=== PATIENT | female | born 1990 | race Caucasian/White ===

== ENCOUNTER 2017-06-15 20:24 | Emergency (ER) | payer BC, MEDICAID ==
[2017-06-15 21:15] LABS: Hematocrit 38 % (35-47); Hemoglobin 12.9 g/dl (12.0-16.0); Mean Corpuscular HGB Conc 34 g/dl (31-36); Mean Corpuscular Hemoglobin 30 pg (27-31); Mean Corpuscular Volume 87 fL (80-97); Mean Platelet Volume 7 um3 (7.4-10.4); Red Blood Count 4.36 10^6/ul (4.0-5.4); Red Cell Distribution Width 12 % (10.5-15); White Blood Count 11.5 10^3/ul (3.5-10.8)
[2017-06-15 21:32] LABS: Urine Bacteria Absent (Absent); Urine Bilirubin Negative (Negative); Urine Glucose Negative (Negative); Urine Nitrite Negative (Negative)
[2017-06-15 21:33] LABS: Albumin 4.1 g/dL (3.2-5.2); BUN/Creatinine Ratio 14.8 (8-20); Calcium 9.3 mg/dL (8.6-10.3); EGFR African American 149.1 (>60); Globulin 2.8 g/dL (2-4); Potassium 3.6 mmol/L (3.5-5.0); Total Bilirubin 0.4 mg/dL (0.2-1.0); Total Protein 6.9 g/dL (6.4-8.9)
[2017-06-15] MEDS ORDERED: RHO D Immune Globulin (HUMAN)* 300 MCG = 1,500 I.U. INJ IM ONE (22:00)
--- NOTE | 2017-06-15 22:33 | ED ---
- HPI Summary HPI Summary: 27F presents at 13 weeks with cramping and vaginal bleeding today. She states everything up to this point in the had been going well. denies any n/v/d/c, hematuria, flank pain, dysuria, frequency, or urgency. no complications with other . bleeding is spotting. is A neg and has had rho gram in past. She states her pain is minimal. She denies any fevers. Her [facility]gyn [facility]. she denies any lightheadedness. - History of Current Complaint Chief Complaint: EDVaginalBleeding Stated Complaint: 13 WKS PREG/SPOTTING Time Seen by Provider: 06/15/17 20:47 Pain Intensity: 0 - Assessment SAB: 0 IEA: 0 - Additional Pertinent History Maternal Blood Type and Rh: A Negative - Allergies/Home Medications Allergies/Adverse Reactions: Allergies Allergy/AdvReac Type Severity Reaction Status Date / Time Latex Allergy Mild Rash Verified 01/06/14 20:22 PMH/Surg Hx/FS Hx/Imm Hx Endocrine/Hematology History: Denies: Hx Diabetes, Hx Systemic Lupus Erythematosus, Hx Thyroid Disease Cardiovascular History: Reports: Hx Hypertension - white coat syndrome Denies: Hx Congestive Heart Failure Respiratory History: Reports: Hx Asthma - As a child Denies: Hx Chronic Obstructive Pulmonary Disease (COPD) GI History: Denies: Hx Ulcer History: Denies: Hx Renal Disease - Surgical History Surgery Procedure, Year, and Place: [place] rep[facility]fr left knee 2004 Infectious Disease History: Yes Infectious Disease History: Denies: Hx Hepatitis, Hx Human Immunodeficiency Virus (HIV), Traveled Outside the [place] in Last 30 Days - Family History Known Family History: Negative: Blood Disorder - Social History Alcohol Use: None Substance Use Type: Reports: None Smoking Status (MU): Former Smoker Review of Systems Negative: Fever Negative: Chest Pain Negative: Shortness Of Breath Positive: Abdominal Pain - cramping, Other - vaginal bleeding. Negative: Vomiting, Diarrhea, Nausea All Other Systems Reviewed And Are Negative: Yes Physical Exam - Physical Exam Triage Information Reviewed: Yes Vital Signs Reviewed: Yes Appearance: Positive: Well-Appearing Skin: Positive: Warm, Dry Head/Face: Positive: Normal Head/Face Inspection Eyes: Positive: Normal, Conjunctiva Clear ENT: Positive: Normal ENT inspection, Pharynx normal, TMs normal Respiratory/Lung Sounds: Positive: Clear to Auscultation, Breath Sounds Present Cardiovascular: Positive: Normal, RRR Abdomen Description: Positive: Soft, Other: - mild pelvic pain Bowel Sounds: Positive: Present Diagnostics - Vital Signs Vital Signs Temp Pulse Resp BP Pulse Ox 06/15/17 21:57 85 16 109/67 99 06/15/17 20:50 98.5 F 100 16 138/78 98 06/15/17 20:27 98.5 F 104 14 144/89 100 - Laboratory Lab Results: Lab Results 06/15/17 06/15/17 06/15/17 Range/Units 21:04 21:04 21:04 WBC 11.5 H (3.5-10.8) 10^3/ul RBC 4.36 (4.0-5.4) 10^6/ul Hgb 12.9 (12.0-16.0) g/dl Hct 38 (35-47) % MCV 87 (80-97) fL MCH 30 (27-31) pg MCHC 34 (31-36) g/dl RDW 12 (10.5-15) % Plt Count 250 (150-450) 10^3/ul MPV 7 L (7.4-10.4) um3 Neut % (Auto) 63.6 (38-83) % Lymph % (Auto) 29.0 (25-47) % Bledsoe % (Auto) 5.3 (1-9) % Eos % (Auto) 1.4 (0-6) % Baso % (Auto) 0.7 (0-2) % Absolute Neuts (auto) 7.3 (1.5-7.7) 10^3/ul Absolute Lymphs (auto) 3.3 (1.0-4.8) 10^3/ul Absolute Monos (auto) 0.6 (0-0.8) 10^3/ul Absolute Eos (auto) 0.2 (0-0.6) 10^3/ul Absolute Basos (auto) 0.1 (0-0.2) 10^3/ul Absolute Nucleated RBC 0.01 10^3/ul Nucleated RBC % 0.1 INR (Anticoag Therapy) (0.89-1.11) APTT (26.0-36.3) seconds Sodium 136 (133-145) mmol/L Potassium 3.6 (3.5-5.0) mmol/L Chloride 107 (101-111) mmol/L Carbon Dioxide 23 (22-32) mmol/L Anion Gap 6 (2-11) mmol/L BUN 9 (6-24) mg/dL Creatinine 0.61 (0.51-0.95) mg/dL Est GFR ( Amer) 149.1 (>60) Est GFR (Non-Af Amer) 116.0 (>60) BUN/Creatinine Ratio 14.8 (8-20) Glucose 107 H (70-100) mg/dL Calcium 9.3 (8.6-10.3) mg/dL Total Bilirubin 0.40 (0.2-1.0) mg/dL AST 14 (13-39) U/L ALT 17 (7-52) U/L Alkaline Phosphatase 41 (34-104) U/L Total Protein 6.9 (6.4-8.9) g/dL Albumin 4.1 (3.2-5.2) g/dL Globulin 2.8 (2-4) g/dL Albumin/Globulin Ratio 1.5 (1-3) Beta HCG, Quant 8249.00 mIU/mL Urine Color Yellow Urine Appearance Cloudy Urine pH 7.0 (5-9) Ur Specific Una 1.010 (1.010-1.030) Urine Protein Negative (Negative) Urine Ketones Negative (Negative) Urine Blood 3+ H (Negative) Urine Nitrate Negative (Negative) Urine Bilirubin Negative (Negative) Urine Urobilinogen Negative (Negative) Ur Leukocyte Esterase Trace H (Negative) Urine WBC (Auto) Trace(0-5/hpf) (Absent) Urine RBC (Auto) Absent (Absent) Ur Squamous Epith Cells Present H (Absent) Amorphous Crystals Present H (Absent) Urine Bacteria Absent (Absent) Urine Glucose Negative (Negative) Blood Type Antibody Screen 06/15/17 06/15/17 Range/Units 21:04 21:04 WBC (3.5-10.8) 10^3/ul RBC (4.0-5.4) 10^6/ul Hgb (12.0-16.0) g/dl Hct (35-47) % MCV (80-97) fL MCH (27-31) pg MCHC (31-36) g/dl RDW (10.5-15) % Plt Count (150-450) 10^3/ul MPV (7.4-10.4) um3 Neut % (Auto) (38-83) % Lymph % (Auto) (25-47) % Bledsoe % (Auto) (1-9) % Eos % (Auto) (0-6) % Baso % (Auto) (0-2) % Absolute Neuts (auto) (1.5-7.7) 10^3/ul Absolute Lymphs (auto) (1.0-4.8) 10^3/ul Absolute Monos (auto) (0-0.8) 10^3/ul Absolute Eos (auto) (0-0.6) 10^3/ul Absolute Basos (auto) (0-0.2) 10^3/ul Absolute Nucleated RBC 10^3/ul Nucleated RBC % INR (Anticoag Therapy) 0.87 L (0.89-1.11) APTT 33.8 (26.0-36.3) seconds Sodium (133-145) mmol/L Potassium (3.5-5.0) mmol/L Chloride (101-111) mmol/L Carbon Dioxide (22-32) mmol/L Anion Gap (2-11) mmol/L BUN (6-24) mg/dL Creatinine (0.51-0.95) mg/dL Est GFR ( Amer) (>60) Est GFR (Non-Af Amer) (>60) BUN/Creatinine Ratio (8-20) Glucose (70-100) mg/dL Calcium (8.6-10.3) mg/dL Total Bilirubin (0.2-1.0) mg/dL AST (13-39) U/L ALT (7-52) U/L Alkaline Phosphatase (34-104) U/L Total Protein (6.4-8.9) g/dL Albumin (3.2-5.2) g/dL Globulin (2-4) g/dL Albumin/Globulin Ratio (1-3) Beta HCG, Quant mIU/mL Urine Color Urine Appearance Urine pH (5-9) Ur Specific Una (1.010-1.030) Urine Protein (Negative) Urine Ketones (Negative) Urine Blood (Negative) Urine Nitrate (Negative) Urine Bilirubin (Negative) Urine Urobilinogen (Negative) Ur Leukocyte Esterase (Negative) Urine WBC (Auto) (Absent) Urine RBC (Auto) (Absent) Ur Squamous Epith Cells (Absent) Amorphous Crystals (Absent) Urine Bacteria (Absent) Urine Glucose (Negative) Blood Type A Negative Antibody Screen Pending Result Diagrams: 06/15/17 21:04 06/15/17 21:04 Lab Statement: Any lab studies that have been ordered have been reviewed, and results considered in the medical decision making process. - Ultrasound No standard instances Ultrasound Interpretation: Positive (See Comments) - single intrauterine measuring gestational age 10 weeks 0 days without visible heart rate consistnet with demise. normal ovaries. Ultrasound Interpretation Completed By: Radiologist Course/Dx - Course Course Of Treatment: 27F presents at 13 weeks with cramping and vaginal bleeding today. She states everything up to this point in the had been going well. denies any n/v/d/c, hematuria, flank pain, dysuria, frequency, or urgency. no complications with other . bleeding is spotting. is A neg and has had rho gram in past. She states her pain is minimal. She denies any fevers. on exam tender in pelvic region. gave rho gram. HCG lower than expected and u/s shows demise. explained all results to patient and that needs to follow up with obgyn to discuss options. patient understands and agrees with plan. - Differential Diagnosis/HQI/PQRI: Missed , Spontaneous , / Embryonic Demise - Diagnoses Provider Diagnoses: demise, Vaginal bleeding Discharge - Discharge Plan Condition: Good Disposition: HOME Patient Education Materials: Miscarriage (ED) Referrals: Oscar Brown MD [Primary Care Provider] - Britni Moore MD [Medical Doctor] - Additional Instructions: Follow up with obgyn Take Tylenol or ibuprofen for pain every 6 hours Return to ED if develop any fever or any new or worsening symptoms
[2017-06-15 23:15] VITALS: BP 123/71
--- NOTE | 2017-06-16 08:26 | RAD ---
HISTORY: Cramping and vaginal bleeding in a woman in her first trimester COMPARISONS: None TECHNIQUE: Multiple transverse and longitudinal ultrasound images were obtained of the pelvis using grayscale, color flow, spectral and M-mode sonographic imaging. FINDINGS: UTERUS: The uterus is normal in shape, size, contour, and echotexture. GESTATION: There is a single live intrauterine gestation. The crown-rump length measures 2.3 cm yielding a gestational age of 9 weeks and 0 days. The mean gestational sac diameter of the irregular gestational sac measures 5.1 centimeters yielding a gestational age of 11 weeks and 0 days. No movement or heart rate is detected. CUL-DE-SAC: There is no free fluid within the cul-de-sac. RIGHT OVARY: The right ovary measures 2.8 x 2.4 x 1.4 cm. LEFT OVARY: The left ovary measures 3.4 x 1.7 x 2.9 cm. IMPRESSION: There is a 2 week discrepancy between the pole and the gestational sac mean diameter and no movement or cardiac activity identified. Sonographic findings are most consistent with demise. Close maternal and possibly sonographic follow-up is advised including trending beta hCG.
== END 2017-06-15 23:15 | disposition home or self-care (01) ==
LOC: ED 20:24
DX: O02.1 Missed abortion (principal); R10.30 Lower abdominal pain, unspecified; I10 Essential (primary) hypertension; Z91.040 Latex allergy status; Z87.891 Personal history of nicotine dependence
CPT/HCPCS: 36415; 76801; 80053; 81003; 81015; 84702; 85025; 85610; 85730; 86850; 86900; 86901; 87086; 96372; 99282; J2790

== ENCOUNTER 2017-12-31 19:41 | Emergency (ER) | payer MEDICAID, OTHER ==
[2017-12-31 20:49] LABS: Urine Appearance Clear; Urine Blood 1+ (Negative); Urine Color Straw; Urine Ketones Negative (Negative); Urine Protein Negative (Negative); Urine Specific Gravity 1.008 (1.010-1.030); Urine Urobilinogen Negative (Negative)
[2017-12-31 21:42] LABS: ABS Basophils 0.1 10^3/ul (0-0.2); ABS Eosinophils 0.1 10^3/ul (0-0.6); ABS Lymphocytes 3.8 10^3/ul (1.0-4.8); ABS Monocytes 0.6 10^3/ul (0-0.8); ABS Neutrophils 7.7 10^3/ul (1.5-7.7); ABS Nucleated RBC 0 10^3/ul; Eosinophil % 0.9 % (0-6); Hematocrit 40 % (35-47); Hemoglobin 13.7 g/dl (12.0-16.0); Mean Corpuscular HGB Conc 34 g/dl (31-36); Mean Corpuscular Hemoglobin 29 pg (27-31); Mean Corpuscular Volume 85 fL (80-97); Mean Platelet Volume 8 um3 (7.4-10.4); Nucleated Red Blood Cells % 0; Platelet Count 250 10^3/ul (150-450); Red Blood Count 4.72 10^6/ul (4.0-5.4); Red Cell Distribution Width 12 % (10.5-15); White Blood Count 12.3 10^3/ul (3.5-10.8)
[2017-12-31 21:58] LABS: EGFR Non-African American 88.6 (>60)
[2018-01-01] MEDS ORDERED: RHO D Immune Globulin (HUMAN)* 300 MCG = 1,500 I.U. INJ IM ONE (01:00)
--- NOTE | 2018-01-01 01:04 | ED ---
- HPI Summary HPI Summary: 27 female presents to ED with complaints of vaginal spotting and passing 1-2 clots that began this evening around dinner time, 12/31/17. Patient has had one miscarriage in the past. . Patient denies any cramping or abdominal pain. Denies vaginal discharge otherwise. No itching burning or other complaints. No concern for STD. Otherwise healthy. No other complaints. Just wanted to check . Bleding has since subsided. Patient did not even wear a pad. - History of Current Complaint Chief Complaint: EDOBProblems Stated Complaint: 6 WEEKS PREG/CRAMPING/SPOTTING Time Seen by Provider: 01/01/18 00:05 Hx Obtained From: Patient Onset/Duration: Started Hours Ago, Resolved Timing: Constant Severity: Mild Current Severity: None Pain Intensity: 1 Location of Pain: None Character: None Associated Signs and Symptoms: Positive: Vaginal Bleeding or Discharge - Assessment SAB: 0 IEA: 0 - Additional Pertinent History Maternal Blood Type and Rh: A Negative - Allergies/Home Medications Allergies/Adverse Reactions: Allergies Allergy/AdvReac Type Severity Reaction Status Date / Time MS Latex [Latex] Allergy Mild Rash Verified 01/06/14 20:22 PMH/Surg Hx/FS Hx/Imm Hx Endocrine/Hematology History: Denies: Hx Diabetes, Hx Systemic Lupus Erythematosus, Hx Thyroid Disease Cardiovascular History: Reports: Hx Hypertension - white coat syndrome Denies: Hx Congestive Heart Failure Respiratory History: Reports: Hx Asthma - As a child Denies: Hx Chronic Obstructive Pulmonary Disease (COPD) GI History: Denies: Hx Ulcer History: Denies: Hx Renal Disease - Surgical History Surgery Procedure, Year, and Place: [place] rep[facility]fr left knee 2003 - Immunization History Immunizations Up to Date: Yes Infectious Disease History: Yes Infectious Disease History: Denies: Hx Hepatitis, Hx Human Immunodeficiency Virus (HIV), Traveled Outside the [place] in Last 30 Days - Family History Known Family History: Positive: None Negative: Blood Disorder - Social History Alcohol Use: None Substance Use Type: Reports: None Smoking Status (MU): Former Smoker Review of Systems Constitutional: Negative Cardiovascular: Negative Respiratory: Negative Positive: other - vaginal spotting All Other Systems Reviewed And Are Negative: Yes Physical Exam - Physical Exam Triage Information Reviewed: Yes Vital Signs On Initial Exam: temp: 99.4 HR: 93 O2: 99 BP: 144/83 Resp: 20 Vital Signs Reviewed: Yes Appearance: Positive: Well-Appearing, No Pain Distress Skin: Positive: Warm, Skin Color Reflects Adequate Perfusion, Dry Respiratory/Lung Sounds: Positive: Clear to Auscultation, Breath Sounds Present , Wheezes - diffuse "patient suffering from URI". Negative: Rales, Rhonchi Cardiovascular: Positive: Normal, RRR, Pulses are Symmetrical in both Upper and Lower Extremities Abdomen Description: Positive: Nontender, No Organomegaly, Soft, Other: - pelvic exam deferred Bowel Sounds: Positive: Present Musculoskeletal: Positive: Normal, Strength/ROM Intact Neurological: Positive: Normal, Sensory/Motor Intact, Alert, Oriented to Person Place, Time Diagnostics - Vital Signs Vital Signs Temp Pulse Resp BP Pulse Ox 12/31/17 20:05 99.4 F 93 20 144/83 99 - Laboratory Lab Results: Lab Results 12/31/17 12/31/17 12/31/17 Range/Units 20:14 21:30 21:30 WBC 12.3 H (3.5-10.8) 10^3/ul RBC 4.72 (4.0-5.4) 10^6/ul Hgb 13.7 (12.0-16.0) g/dl Hct 40 (35-47) % MCV 85 (80-97) fL MCH 29 (27-31) pg MCHC 34 (31-36) g/dl RDW 12 (10.5-15) % Plt Count 250 (150-450) 10^3/ul MPV 8 (7.4-10.4) um3 Neut % (Auto) 62.6 (38-83) % Lymph % (Auto) 31.0 (25-47) % [place] % (Auto) 4.9 (1-9) % Eos % (Auto) 0.9 (0-6) % Baso % (Auto) 0.6 (0-2) % Absolute Neuts (auto) 7.7 (1.5-7.7) 10^3/ul Absolute Lymphs (auto) 3.8 (1.0-4.8) 10^3/ul Absolute Monos (auto) 0.6 (0-0.8) 10^3/ul Absolute Eos (auto) 0.1 (0-0.6) 10^3/ul Absolute Basos (auto) 0.1 (0-0.2) 10^3/ul Absolute Nucleated RBC 0 10^3/ul Nucleated RBC % 0 Sodium 135 (133-145) mmol/L Potassium 3.5 (3.5-5.0) mmol/L Chloride 106 (101-111) mmol/L Carbon Dioxide 24 (22-32) mmol/L Anion Gap 5 (2-11) mmol/L BUN 11 (6-24) mg/dL Creatinine 0.77 (0.51-0.95) mg/dL Est GFR ( Amer) 114.0 (>60) Est GFR (Non-Af Amer) 88.6 (>60) BUN/Creatinine Ratio 14.3 (8-20) Glucose 89 (70-100) mg/dL Calcium 8.8 (8.6-10.3) mg/dL Total Bilirubin 0.40 (0.2-1.0) mg/dL AST 16 (13-39) U/L ALT 24 (7-52) U/L Alkaline Phosphatase 37 (34-104) U/L Total Protein 6.9 (6.4-8.9) g/dL Albumin 4.4 (3.2-5.2) g/dL Globulin 2.5 (2-4) g/dL Albumin/Globulin Ratio 1.8 (1-3) Beta HCG, Quant 55175.00 mIU/mL Urine Color Straw Urine Appearance Clear Urine pH 8.0 (5-9) Ur Specific [place] 1.008 L (1.010-1.030) Urine Protein Negative (Negative) Urine Ketones Negative (Negative) Urine Blood 1+ H (Negative) Urine Nitrate Negative (Negative) Urine Bilirubin Negative (Negative) Urine Urobilinogen Negative (Negative) Ur Leukocyte Esterase Negative (Negative) Urine WBC (Auto) Absent (Absent) Urine RBC (Auto) Trace(0-2/hpf) (Absent) Ur Squamous Epith Cells Present H (Absent) Urine Bacteria Absent (Absent) Urine Glucose Negative (Negative) Blood Type Antibody Screen 12/31/17 Range/Units 21:30 WBC (3.5-10.8) 10^3/ul RBC (4.0-5.4) 10^6/ul Hgb (12.0-16.0) g/dl Hct (35-47) % MCV (80-97) fL MCH (27-31) pg MCHC (31-36) g/dl RDW (10.5-15) % Plt Count (150-450) 10^3/ul MPV (7.4-10.4) um3 Neut % (Auto) (38-83) % Lymph % (Auto) (25-47) % [place]ador % (Auto) (1-9) % Eos % (Auto) (0-6) % Baso % (Auto) (0-2) % Absolute Neuts (auto) (1.5-7.7) 10^3/ul Absolute Lymphs (auto) (1.0-4.8) 10^3/ul Absolute Monos (auto) (0-0.8) 10^3/ul Absolute Eos (auto) (0-0.6) 10^3/ul Absolute Basos (auto) (0-0.2) 10^3/ul Absolute Nucleated RBC 10^3/ul Nucleated RBC % Sodium (133-145) mmol/L Potassium (3.5-5.0) mmol/L Chloride (101-111) mmol/L Carbon Dioxide (22-32) mmol/L Anion Gap (2-11) mmol/L BUN (6-24) mg/dL Creatinine (0.51-0.95) mg/dL Est GFR ( Amer) (>60) Est GFR (Non-Af Amer) (>60) BUN/Creatinine Ratio (8-20) Glucose (70-100) mg/dL Calcium (8.6-10.3) mg/dL Total Bilirubin (0.2-1.0) mg/dL AST (13-39) U/L ALT (7-52) U/L Alkaline Phosphatase (34-104) U/L Total Protein (6.4-8.9) g/dL Albumin (3.2-5.2) g/dL Globulin (2-4) g/dL Albumin/Globulin Ratio (1-3) Beta HCG, Quant mIU/mL Urine Color Urine Appearance Urine pH (5-9) Ur Specific [place] (1.010-1.030) Urine Protein (Negative) Urine Ketones (Negative) Urine Blood (Negative) Urine Nitrate (Negative) Urine Bilirubin (Negative) Urine Urobilinogen (Negative) Ur Leukocyte Esterase (Negative) Urine WBC (Auto) (Absent) Urine RBC (Auto) (Absent) Ur Squamous Epith Cells (Absent) Urine Bacteria (Absent) Urine Glucose (Negative) Blood Type A Negative Antibody Screen Negative Result Diagrams: 12/31/17 21:30 12/31/17 21:30 Lab Statement: Any lab studies that have been ordered have been reviewed, and results considered in the medical decision making process. - Ultrasound No standard instances Ultrasound Interpretation: Positive (See Comments) - small intrauterine possible gestational sac 6 weeks 0 days by measurement without discrete yok sac or pole. no adnexal masses appreciated. findings could represent early gestation, but advise correlation with serial quantitative beta-hCG and follow up ultrasound as clinically indicated to exclude possibility of nonvisualized ectopic . no ovarian torsion. color flow with appropriate arterial waveforms. corpora lutea/follicles in each ovary 1.8cm on right 1.4 cm on left Ultrasound Interpretation Completed By: Radiologist Course/Dx - Course Course Of Treatment: US obtained. labs, HCG and type/screen obtained. given rhogam due to patient being negative and experienced spotting/passing of a clot. appears to be an early 6wk intrauterine . follow up with obgyn this week. aware of worsening signs and symptoms to watch out for and to return. no other concerns at this time. no current pain or concerning symptoms. - Differential Diagnosis/HQI/PQRI: Intrauterine , Early , Vaginal Bleeding - Diagnoses Provider Diagnoses: Intrauterine , Early stage of , Vaginal bleeding in patient at less than 20 weeks gestation Discharge - Discharge Plan Condition: Stable Disposition: HOME Patient Education Materials: Threatened Miscarriage (ED), (ED), First Trimester Vaginal Bleed (ED) Referrals: Oscar Brown MD [Primary Care Provider] - Trino Huntley MD [Medical Doctor] - Additional Instructions: Please follow up with OB this week to ensure symptoms improve and for repeat imaging/labs. Any new or worsening symptoms please seek medical attention promptly. Take precautions.
[2018-01-01 02:30] VITALS: BP 118/62
--- NOTE | 2018-01-01 07:46 | RAD ---
INDICATION: , vaginal bleeding. COMPARISON: There are no prior studies available for comparison. TECHNIQUE: Multiple real-time transvaginal images of the pelvis were obtained. FINDINGS: This exam demonstrates a sac like structure within the uterine cavity. No yolk sac pole or heartbeat is seen. The sac measures 1.2 x 1.4 x 0.6 cm and would correspond to an estimated gestational age of 6 weeks 0 days. The right ovary measured 3.4 x 2.6 x 2.5 cm. The left ovary measured 2.9 x 1.6 x 2.2 cm. There is vascular flow within both ovaries. There is a slightly complex cyst present within the right ovary measured 1.8 x 1.8 x 1.8 cm. There is a small cyst within the left ovary measured 1.4 x 1.2 x 1.2 cm. No free intraperitoneal fluid is seen. IMPRESSION: THERE IS A SAC LIKE STRUCTURE WITHIN THE FUNDAL PORTION OF THE UTERUS LIKELY REPRESENTING AN EARLY UTERINE ALTHOUGH A POLE, YOLK SAC OR HEARTBEAT ARE NOT VISUALIZED. THEREFORE THE POSSIBILITY OF AN ECTOPIC CANNOT BE EXCLUDED. RECOMMEND CORRELATION WITH QUANTITATIVE BETA-HCG AND FOLLOW-UP TRANSVAGINAL PELVIC ULTRASOUND STUDIES NEEDED.
== END 2018-01-01 02:29 | disposition home or self-care (01) ==
LOC: ED 19:41
DX: O46.92 Antepartum hemorrhage, unspecified, second trimester (principal); Z3A.20 20 weeks gestation of pregnancy
CPT/HCPCS: 36415; 76801; 76830; 80053; 81003; 81015; 84702; 85025; 86850; 86900; 86901; 96372; 99282; J2790

== ENCOUNTER 2018-04-22 07:13 | Emergency (ER) | payer OTHER ==
--- NOTE | 2018-04-22 08:17 | UC ---
Complaint Female HPI - HPI Summary HPI Summary: 27-year-old lady comes in today with chief complaint of pelvic pain. She feels that she has urgency and frequency with urination. Chest has sharp stabbing pains that go from her vagina up into her uterus. She had a miscarriage about 2 months ago and has not had follow-up ultrasound she has not had any bleeding. She's been sexually active without condoms reports no vaginal discharge no fevers chills or back pain - History Of Current Complaint Chief Complaint: UCGU Stated Complaint: UTI Time Seen by Provider: 04/22/18 07:26 Hx Obtained From: Patient Hx Last Menstrual Period: approx- miscarriage end of 02/03. No menes since ?: No Onset/Duration: Sudden Onset, Lasting Days - 1 Timing: Constant Pain Intensity: 4 Pain Scale Used: 0-10 Numeric Character: Cramping Aggravating Factor(s): Urination Alleviating Factor(s): Nothing Associated Signs And Symptoms: Positive: Negative Related Hx: - 3, Para - 1 - Allergies/Home Medications Allergies/Adverse Reactions: Allergies Allergy/AdvReac Type Severity Reaction Status Date / Time latex Allergy Shakes Verified 04/22/18 07:33 Latex, Natural Rubber Allergy Rash Verified 04/22/18 07:33 PMH/Surg Hx/FS Hx/Imm Hx Previously Healthy: Yes - Surgical History Surgical History: Yes Surgery Procedure, Year, and Place: [place] repafr left knee 2003 - Family History Known Family History: Positive: None Negative: Blood Disorder - Social History Occupation: Works From/At Home Lives: With Family Alcohol Use: None Substance Use Type: None Smoking Status (MU): Former Smoker - Immunization History Most Recent Influenza Vaccination: 09/19/13 Most Recent Tetanus Shot: 10/22/13 Most Recent Pneumonia Vaccination: none Review of Systems Constitutional: Negative Skin: Negative Eyes: Negative ENT: Negative Respiratory: Negative Cardiovascular: Negative Gastrointestinal: Negative Genitourinary: Negative, Frequency, Urgency, Vaginal/Penile Pain Motor: Negative Neurovascular: Negative Musculoskeletal: Negative Neurological: Negative Psychological: Negative Is Patient Immunocompromised?: No All Other Systems Reviewed And Are Negative: Yes Physical Exam Triage Information Reviewed: Yes Appearance: Well-Appearing, No Pain Distress, Well-Nourished Vital Signs: Initial Vital Signs Temp 98.2 F 04/22/18 07:34 Pulse 67 04/22/18 07:34 Resp 18 04/22/18 07:34 BP 146/62 04/22/18 07:34 Pulse Ox 100 04/22/18 07:34 Vital Signs Reviewed: Yes Eye Exam: Normal Eyes: Positive: Conjunctiva Clear ENT Exam: Normal ENT: Positive: Normal ENT inspection, Hearing grossly normal. Negative: Nasal congestion, Trismus, Muffled voice, Hoarse voice Dental Exam: Normal Neck exam: Normal Neck: Positive: Supple, Nontender Respiratory Exam: Normal Respiratory: Positive: Chest non-tender, No respiratory distress, No accessory muscle use Cardiovascular Exam: Normal Cardiovascular: Positive: RRR, No Murmur, Brisk Capillary Refill Abdominal Exam: Normal Abdomen Description: Positive: Soft, Other: - supra pubic discomfort. Negative : CVA Tenderness (R), CVA Tenderness (L), Distended, McBurney's Point Tenderness Bowel Sounds: Positive: Present Musculoskeletal Exam: Normal Musculoskeletal: Positive: Strength Intact, ROM Intact, No Edema Neurological Exam: Normal Neurological: Positive: Alert, Muscle Tone Normal Psychological Exam: Normal Skin Exam: Normal Diagnostics - Laboratory Diagnostic Studies Completed/Ordered: ua trace blood negative urine preg - Radiology No standard instances Xray Interpretation: Positive (See Comments) - Patient Name: VELASQUEZ STAFFORD Medical Record#: [id number] Ordering Physician: Eunice Boyce NP Acct.#: [id number] : 1990 Age: 27 Sex: F Location: [facility] Exam Date: 04/22/18830 ADM Status: REG ER Order Information : US TRANSVAGINAL Accession Number : [id number] CPT: 12804 INDICATION: Left greater than right pelvic pain in a woman who had a miscarriage 2 months earlier as yet to have a menstrual period COMPARISON: Gravid pelvic ultrasound dated December 31, 2017 TECHNIQUE: Real-time transabdominal and transvaginal ultrasound examination of the female pelvis including grayscale and Doppler color flow imaging. FINDINGS: Uterus: The uterus is normal in size and echogenicity measuring 7.2 x 4.4 x 6.4 cm. The endometrial stripe is smooth and uniform measuring 8 mm in thickness. There are no definite retained products of conception. Ovaries: The right and left ovary measure 3.8 x 3.2 x 2.9 cm and 3.9 x 1.8 x 1.9 cm, respectively. Normal arterial and venous waveforms are identified. Within the right ovary there is an anechoic and avascular structure measuring 2.6 cm in greatest dimension most consistent with a follicle in a woman of this age. There is no free fluid in the cul-de-sac. IMPRESSION: Normal and age-appropriate pelvic ultrasound. No signs of retained products of conception are identified. <Electronically signed by Troy Gallardo MD in OV> 04/22/18918 Dictated By: Troy Gallardo MD Dictated Date/Time: 04/22/18918 Transcribed Date/ Time: 04/22/18915 Copy to: CC:Oscar Brown MD; Otis Grant MD; Eunice Boyce NP Imaging - [facility] - [facility] [address] [place] [address] ph ) ph ([phone]) ph ([phone]) 1 of 1 Radiology Interpretation Completed By: Radiologist Complaint Female Dx - Course Course Of Treatment: ibuprofen, pelvic swabs to lab, [facility] - Differential Dx/Diagnosis Provider Diagnoses: ovarian cyst, pelvic pain Discharge - Sign-Out/Discharge Documenting (check all that apply): Discharge/Admit/Transfer - Discharge Plan Condition: Stable Disposition: HOME Prescriptions: Ibuprofen TAB* [Motrin TAB* 600 MG] 600 mg PO Q6H PRN #30 tab PRN Reason: pain Patient Education Materials: Ovarian Cyst (ED), Pelvic Pain in Women (ED) [facility]errals: [facility] [Outside] - 1 Week - Billing Disposition and Condition Condition: STABLE Disposition: Home
--- NOTE | 2018-04-22 09:23 | RAD ---
INDICATION: Left greater than right pelvic pain in a woman who had a miscarriage 2 months earlier as yet to have a menstrual period COMPARISON: Gravid pelvic ultrasound dated December 31, 2017 TECHNIQUE: Real-time transabdominal and transvaginal ultrasound examination of the female pelvis including grayscale and Doppler color flow imaging. FINDINGS: Uterus: The uterus is normal in size and echogenicity measuring 7.2 x 4.4 x 6.4 cm. The endometrial stripe is smooth and uniform measuring 8 mm in thickness. There are no definite retained products of conception. Ovaries: The right and left ovary measure 3.8 x 3.2 x 2.9 cm and 3.9 x 1.8 x 1.9 cm, respectively. Normal arterial and venous waveforms are identified. Within the right ovary there is an anechoic and avascular structure measuring 2.6 cm in greatest dimension most consistent with a follicle in a woman of this age. There is no free fluid in the cul-de-sac. IMPRESSION: Normal and age-appropriate pelvic ultrasound. No signs of retained products of conception are identified.
[2018-04-22 09:29] VITALS: BP 146/77
--- NOTE | 2018-04-24 08:17 | UC ---
- Progress Note Progress Note: neg Trich neg GC/ch no change ljj 04/24/18 Discharge - Sign-Out/Discharge Documenting (check all that apply): Post-Discharge Follow Up - Discharge Plan Condition: Stable Disposition: HOME Prescriptions: Ibuprofen TAB* [Motrin TAB* 600 MG] 600 mg PO Q6H PRN #30 tab PRN Reason: pain Patient Education Materials: Ovarian Cyst (ED), Pelvic Pain in Women (ED) Referrals: [facility] [Outside] - 1 Week - Billing Disposition and Condition Condition: STABLE Disposition: Home
== END 2018-04-22 09:46 | disposition home or self-care (01) ==
LOC: UCEAST 07:13
DX: N83.209 Unspecified ovarian cyst, unspecified side (principal); R10.2 Pelvic and perineal pain; Z87.891 Personal history of nicotine dependence
CPT/HCPCS: 76830; 81003; 84702; 87480; 87491; 87510; 87591; 87661; 99212; G0463

== ENCOUNTER 2018-05-05 06:35 | Emergency (ER) | payer OTHER ==
[2018-05-05] MEDS ORDERED: Ketorolac INJ* 30 MG/ML 1 ML VIAL IV PUSH ONE (07:24)
[2018-05-05] MEDS ORDERED: PROCHLORPERAZINE INJ 5 MG/ML 2 ML VIAL IV PRN (07:24)
[2018-05-05] MEDS ORDERED: NS 0.9% 1000 ML* 1,000 ML IV ONE (07:24)
[2018-05-05 07:55] LABS: ABS Basophils 0 10^3/ul (0-0.2); ABS Eosinophils 0 10^3/ul (0-0.6); ABS Lymphocytes 1.4 10^3/ul (1.0-4.8); ABS Monocytes 0.2 10^3/ul (0-0.8); ABS Neutrophils 6.2 10^3/ul (1.5-7.7); ABS Nucleated RBC 0 10^3/ul; Eosinophil % 0.3 % (0-6); Hematocrit 43 % (35-47); Hemoglobin 14.9 g/dl (12.0-16.0); Lymphocyte % 18.1 % (25-47); Mean Corpuscular HGB Conc 35 g/dl (31-36); Mean Corpuscular Hemoglobin 28 pg (27-31); Mean Corpuscular Volume 81 fL (80-97); Mean Platelet Volume 7.9 um3 (7.4-10.4); Nucleated Red Blood Cells % 0.1; Platelet Count 227 10^3/ul (150-450); Red Blood Count 5.24 10^6/ul (4.00-5.40); Red Cell Distribution Width 13 % (10.5-15)
[2018-05-05 08:34] LABS: Urine Appearance Cloudy; Urine Blood 3+ (Negative); Urine Color Yellow; Urine Ketones Negative (Negative); Urine Protein 1+(30 mg/dL) (Negative); Urine Red Blood Cell 3+(>10/hpf) (Absent); Urine Specific Gravity 1.021 (1.010-1.030); Urine Urobilinogen Negative (Negative); Urine White Blood Cell Absent (Absent)
--- NOTE | 2018-05-05 09:40 | RAD ---
CLINICAL HISTORY: right flank pain , COMPARISON: April 16, 2013 TECHNIQUE: Multiple contiguous axial CT scans were obtained of the abdomen and pelvis, without intravenous contrast enhancement. Coronal and sagittal multiplanar reformations are submitted for review. Oral contrast was not administered. FINDINGS: The study is limited by the lack of intravenous contrast. This limits evaluation of the solid organs and vasculature. Evaluation is also somewhat limited by the [id number]. The dome of the liver is incompletely included within the [id number] the current examination. LUNG BASES: The lung bases are clear. LIVER: The liver is normal in shape, size, contour, and attenuation. BILE DUCTS: There is no intrahepatic or extrahepatic biliary dilatation. GALLBLADDER: The gallbladder is normal, without pericholecystic inflammatory change. PANCREAS: The pancreas is normal, without mass or ductal dilatation. SPLEEN: Normal in size and appearance. UPPER GI TRACT: Evaluation of the gastrointestinal tract is limited by incomplete gastric distention. The upper GI tract is unremarkable. SMALL BOWEL AND MESENTERY: The small bowel is normal in contour, course, and caliber. There is no obstruction or dilatation. COLON: The colon is normal in contour, course, caliber. There is no pericolonic inflammatory change. ADRENALS: Normal bilaterally. KIDNEYS: There is a 0.5 cm calculus of the distal right ureter just proximal to the UVJ. There is moderate hydroureter. There is a nonobstructing left renal calyceal stone measuring 0.4 cm. BLADDER: The bladder is incompletely distended but is grossly normal. PELVIC ORGANS: The uterus and adnexa are grossly normal for technique. AORTA: The aorta is normal. IVC: Unremarkable LYMPH NODES: There is no lymphadenopathy by size criteria. ABDOMINAL WALL: There is a small fat-containing umbilical hernia. BONES AND SOFT TISSUES: Unremarkable OTHER: None IMPRESSION: BILATERAL NEPHROLITHIASIS INCLUDING A 0.5 CM CALCULUS OF THE DISTAL RIGHT URETER JUST PROXIMAL TO THE UVJ WITH ASSOCIATED HYDROURETER.
[2018-05-05 10:37] VITALS: BP 126/78
--- NOTE | 2018-05-05 12:09 | ED ---
Arslan Escobar Tariq, scribed for Jesse Galeas MD on 05/05/18 at 0713 . Abdominal Pain/Female - HPI Summary HPI Summary: A 27 y/o pt presents to the ED c/o RUQ abdominal pain. Severe pain started at 0330, waking her up from her sleep, and has been constant ever since. The pain is characterized as sharp, 8/10 as per triage. Additionally c/o nausea. Pt was fine last night, with normal appetite, no apparent changes. According to pt, bowels and urination are normal. Sitting on the toilet helps reduce the pain, but it never goes away. Her last period ended 5 days ago (Sunday). PMHx of C- section 4 years go and miscarriage in January. As per , pt has a ovarian cyst in same area. Allergies include sensitivity to latex. - History of Current Complaint Chief Complaint: EDAbdPain Stated Complaint: ABD PAIN Time Seen by Provider: 05/05/18 07:04 Hx Obtained From: Patient Hx Last Menstrual Period: approx- miscarriage end of 02/03. No menes since Onset/Duration: Sudden Onset, Lasting Hours, Still Present Timing: Hours Severity Initially: Severe Severity Currently: Severe Pain Intensity: 8 Pain Scale Used: 0-10 Numeric Location: Discrete At: RUQ Radiates: No Character: Sharp Aggravating Factor(s): Nothing Alleviating Factor(s): Position - Sitting on toilet. Associated Signs and Symptoms: Positive: Nausea Allergies/Adverse Reactions: Allergies Allergy/AdvReac Type Severity Reaction Status Date / Time Latex, Natural Rubber Allergy Rash Verified 04/22/18 07:33 PMH/Surg Hx/FS Hx/Imm Hx Endocrine/Hematology History: Denies: Hx Diabetes, Hx Systemic Lupus Erythematosus, Hx Thyroid Disease Cardiovascular History: Reports: Hx Hypertension - white coat syndrome Denies: Hx Congestive Heart Failure Respiratory History: Reports: Hx Asthma - As a child Denies: Hx Chronic Obstructive Pulmonary Disease (COPD) GI History: Denies: Hx Ulcer History: Denies: Hx Renal Disease - Surgical History Surgery Procedure, Year, and Place: [place] repafr left knee 2003 Infectious Disease History: Yes Infectious Disease History: Denies: Hx Hepatitis, Hx Human Immunodeficiency Virus (HIV), Traveled Outside the [place] in Last 30 Days - Family History Known Family History: Negative: Blood Disorder - Social History Alcohol Use: Occasionally Substance Use Type: Reports: None Smoking Status (MU): Current Some Day Smoker Review of Systems Negative: Fever Positive: Abdominal Pain - RUQ, Nausea All Other Systems Reviewed And Are Negative: Yes Physical Exam - Summary Physical Exam Summary: Appearance: The patient is well-nourished in no acute distress and in no acute pain. Skin: The skin is warm and dry and skin color reflects adequate perfusion. HEENT: The head is normocephalic and atraumatic. The pupils are equal and reactive. The conjunctivae are clear and without drainage. Nares are patent and without drainage. Mouth reveals moist mucous membranes and the throat is without erythema and exudate. The external ears are intact. The ear canals are patent and without drainage. The tympanic membranes are intact. Neck: The neck is supple with full range of motion and non-tender. There are no carotid bruits. There is no neck vein distension. Respiratory: Chest is non-tender. Lungs are clear to auscultation and breath sounds are symmetrical and equal. Cardiovascular: Heart is regular rate and rhythm. There is no murmur or rub auscultated. There is no peripheral edema and pulses are symmetrical and equal. Abdomen: Mild abdominal tenderness on right. There are normal bowel sounds heard in all four quadrants and there is no organomegaly palpated. Musculoskeletal: There is no back tenderness noted. Extremities are non-tender with full range of motion. There is good capillary refill. There is no peripheral edema or calf tenderness elicited. Neurological: Patient is alert and oriented to person, place and time. The patient has symmetrical motor strength in all four extremities. Cranial nerves are grossly intact. Deep tendon reflexes are symmetrical and equal in all four extremities. Psychiatric: The patient has an appropriate affect and does not exhibit any anxiety or depression. Triage Information Reviewed: Yes Vital Signs On Initial Exam: Initial Vitals Resp 17 05/05/18 06:40 Vital Signs Reviewed: Yes Diagnostics - Vital Signs Vital Signs Temp Pulse Resp BP Pulse Ox 05/05/18 06:50 97.3 F 77 20 125/72 99 05/05/18 06:40 17 - Laboratory Lab Results: Lab Results 05/05/18 05/05/18 05/05/18 Range/Units 07:41 07:41 07:41 WBC 8.0 (3.5-10.8) 10^3/ul RBC 5.24 (4.00-5.40) 10^6/ul Hgb 14.9 (12.0-16.0) g/dl Hct 43 (35-47) % MCV 81 (80-97) fL MCH 28 (27-31) pg MCHC 35 (31-36) g/dl RDW 13 (10.5-15) % Plt Count 227 (150-450) 10^3/ul MPV 7.9 (7.4-10.4) um3 Neut % (Auto) 78.2 (38-83) % Lymph % (Auto) 18.1 L (25-47) % [place] % (Auto) 3.0 (0-7) % Eos % (Auto) 0.3 (0-6) % Baso % (Auto) 0.4 (0-2) % Absolute Neuts (auto) 6.2 (1.5-7.7) 10^3/ul Absolute Lymphs (auto) 1.4 (1.0-4.8) 10^3/ul Absolute Monos (auto) 0.2 (0-0.8) 10^3/ul Absolute Eos (auto) 0 (0-0.6) 10^3/ul Absolute Basos (auto) 0 (0-0.2) 10^3/ul Absolute Nucleated RBC 0 10^3/ul Nucleated RBC % 0.1 Sodium 141 (135-145) mmol/L Potassium 3.7 (3.5-5.0) mmol/L Chloride 109 (101-111) mmol/L Carbon Dioxide 21 L (22-32) mmol/L Anion Gap 11 (2-11) mmol/L BUN 13 (6-24) mg/dL Creatinine 0.79 (0.51-0.95) mg/dL Est GFR ( Amer) 110.7 (>60) Est GFR (Non-Af Amer) 86.0 (>60) BUN/Creatinine Ratio 16.5 (8-20) Glucose 116 H (70-100) mg/dL Lactic Acid 2.1 H* (0.5-2.0) mmol/L Calcium 9.0 (8.6-10.3) mg/dL Total Bilirubin 0.30 (0.2-1.0) mg/dL AST 22 (13-39) U/L ALT 29 (7-52) U/L Alkaline Phosphatase 53 (34-104) U/L C-Reactive Protein < 1.00 (< 5.00) mg/L Total Protein 7.4 (6.4-8.9) g/dL Albumin 4.5 (3.2-5.2) g/dL Globulin 2.9 (2-4) g/dL Albumin/Globulin Ratio 1.6 (1-3) Urine Color Urine Appearance Urine pH (5-9) Ur Specific [place] (1.010-1.030) Urine Protein (Negative) Urine Ketones (Negative) Urine Blood (Negative) Urine Nitrate (Negative) Urine Bilirubin (Negative) Urine Urobilinogen (Negative) Ur Leukocyte Esterase (Negative) Urine WBC (Auto) (Absent) Urine RBC (Auto) (Absent) Ur Squamous Epith Cells (Absent) Urine Bacteria (Absent) Urine Glucose (Negative) 05/05/18 Range/Units 08:09 WBC (3.5-10.8) 10^3/ul RBC (4.00-5.40) 10^6/ul Hgb (12.0-16.0) g/dl Hct (35-47) % MCV (80-97) fL MCH (27-31) pg MCHC (31-36) g/dl RDW (10.5-15) % Plt Count (150-450) 10^3/ul MPV (7.4-10.4) um3 Neut % (Auto) (38-83) % Lymph % (Auto) (25-47) % [place] % (Auto) (0-7) % Eos % (Auto) (0-6) % Baso % (Auto) (0-2) % Absolute Neuts (auto) (1.5-7.7) 10^3/ul Absolute Lymphs (auto) (1.0-4.8) 10^3/ul Absolute Monos (auto) (0-0.8) 10^3/ul Absolute Eos (auto) (0-0.6) 10^3/ul Absolute Basos (auto) (0-0.2) 10^3/ul Absolute Nucleated RBC 10^3/ul Nucleated RBC % Sodium (135-145) mmol/L Potassium (3.5-5.0) mmol/L Chloride (101-111) mmol/L Carbon Dioxide (22-32) mmol/L Anion Gap (2-11) mmol/L BUN (6-24) mg/dL Creatinine (0.51-0.95) mg/dL Est GFR ( Amer) (>60) Est GFR (Non-Af Amer) (>60) BUN/Creatinine Ratio (8-20) Glucose (70-100) mg/dL Lactic Acid (0.5-2.0) mmol/L Calcium (8.6-10.3) mg/dL Total Bilirubin (0.2-1.0) mg/dL AST (13-39) U/L ALT (7-52) U/L Alkaline Phosphatase (34-104) U/L C-Reactive Protein (< 5.00) mg/L Total Protein (6.4-8.9) g/dL Albumin (3.2-5.2) g/dL Globulin (2-4) g/dL Albumin/Globulin Ratio (1-3) Urine Color Yellow Urine Appearance Cloudy Urine pH 5.0 (5-9) Ur Specific [place] 1.021 (1.010-1.030) Urine Protein 1+(30 mg/dl) A (Negative) Urine Ketones Negative (Negative) Urine Blood 3+ A (Negative) Urine Nitrate Negative (Negative) Urine Bilirubin Negative (Negative) Urine Urobilinogen Negative (Negative) Ur Leukocyte Esterase Negative (Negative) Urine WBC (Auto) Absent (Absent) Urine RBC (Auto) 3+(>10/hpf) A (Absent) Ur Squamous Epith Cells Present A (Absent) Urine Bacteria Absent (Absent) Urine Glucose Negative (Negative) Result Diagrams: 05/05/18 07:41 05/05/18 07:41 Lab Statement: Any lab studies that have been ordered have been reviewed, and results considered in the medical decision making process. - CT CT A/P CT Interpretation Completed By: Radiologist - BILATERAL NEPHROLITHIASIS INCLUDING A 0.5 CM CALCULUS OF THE DISTAL RIGHT URETER JUST PROXIMAL TO THE UVJ WITH ASSOCIATED HYDROURETER. ED PHYSICIAN REVIEWED THIS RADIOLOGY REPORT. Abdominal Pain Fem Course/Dx - Course Course Of Treatment: Ms. Nettles presented complaining of right flank pain onset in the wee hours of the morning. She had mild right CVA tenderness and no abdominal tenderness. Her urine showed microscopic blood without signs of infection. She had a mild leukocytosis of 13. CT was obtained which showed a 5 mm right UVJ stone with moderate hydronephrosis. She was quite improved after initially being given ketorolac and Compazine. She will be discharged with Flomax, [place] and recommendation to take ibuprofen. I recommended she follow up with urology if not improved in a week or return if worsening. - Diagnoses Provider Diagnoses: Kidney stones Discharge - Sign-Out/Discharge Documenting (check all that apply): Discharge/Admit/Transfer - Discharge - Discharge Plan Condition: Stable Disposition: HOME Prescriptions: HYDROcodone/ACETAMIN 5-325 MG* [[place] 5-325 TAB*] 1 tab PO Q6H PRN #20 tab MDD 4 PRN Reason: Pain Tamsulosin CAP* [Flomax CAP*] 0.4 mg PO DAILY #7 cap Patient Education Materials: Kidney Stones (ED) Referrals: Ghulam No MD [Medical Doctor] - Oscar Brown MD [Primary Care Provider] - 3 Days Additional Instructions: Recommend Ibuprofen 3 times a day. Return to ED for any new or worsening symptoms. - Billing Disposition and Condition Condition: STABLE Disposition: Home The documentation as recorded by the Arslan toussaint Tariq accurately reflects the service I personally performed and the decisions made by , Jesse Galeas MD.
== END 2018-05-05 10:37 | disposition home or self-care (01) ==
LOC: ED 06:35
DX: N20.0 Calculus of kidney (principal); R11.0 Nausea; R10.11 Right upper quadrant pain; Z72.0 Tobacco use; Z91.040 Latex allergy status
CPT/HCPCS: 36415; 74176; 80053; 81003; 81015; 83605; 85025; 86140; 99283; J0780; J1885